=== PATIENT | male | born 1980 | race Caucasian/White ===

== ENCOUNTER 2017-09-15 06:07 | Emergency (ER) | payer OTHER ==
[2017-09-15 06:09] VITALS: BMI 31.3
[2017-09-15 06:21] VITALS: BP 134/76; PULSE 85; RESP 16; TEMP 98.8; O2SAT 98
[2017-09-15] MEDS ORDERED: Alum-Mag Hydrox-Simethicone Susp (30 mL) PO STA (06:22)
--- NOTE | 2017-09-15 06:30 | ED PDOC ---
HPI: General Adult Time Seen by Provider: 09/15/17 06:10 Chief Complaint (Nursing): Flu-like Symptoms Chief Complaint (Provider): Flu-like Symptoms History Per: Patient History/Exam Limitations: no limitations Onset/Duration Of Symptoms: Days (x 3) Current Symptoms Are (Timing): Still Present Additional Complaint(s): Denis is a 37 year old, male who presents to the emergency department with flu-like symptoms for 3 days. Patient reports sore throat, fever and malaise. Patient reports taking Tylenol for symptoms with no relief. Symptoms became worse today prompting to ED visit. Patient denies getting flu vaccine. PMD: Provider TBD Past Medical History Reviewed: Historical Data, Nursing Documentation, Vital Signs Vital Signs: Last Vital Signs Temp 98.8 F 09/15/17 06:19 Pulse 85 09/15/17 06:19 Resp 16 09/15/17 06:19 BP 134/76 09/15/17 06:19 Pulse Ox 98 09/15/17 06:35 - Medical History PMH: Benign Prostatic Hyperplasia (Follow with urologist), Kidney Stones (2013) , Pneumonia (Hospitalized 10yrs ago w/ "induced coma" for 1week.) Denies: Depression, HIV, Chronic Kidney Disease - Surgical History Surgical History: No Surg Hx - Family History Family History: States: Unknown Family Hx - Social History Current smoker - smoking cessation education provided: No Alcohol: None Drugs: Denies - Home Medications Home Medications: Ambulatory Orders Medication Instructions Recorded Meclizine HCl 25 mg PO TID #30 ctb 08/14/14 diaZEpam [Valium] 5 mg PO HS #10 tab 08/14/14 Famotidine [Pepcid] 20 mg PO BID #30 tab 09/20/15 Omeprazole [Prilosec] 20 mg PO DAILY #30 ecc 09/20/15 Oxycodone HCl/Acetaminophen 1 tab PO Q6 PRN #10 tab 09/20/15 [Percocet 325 mg-5 mg] Amoxicillin [Amoxil 500 mg Cap] 500 mg PO BID #20 cap 09/24/16 - Allergies Allergies/Adverse Reactions: Allergies Allergy/AdvReac Type Severity Reaction Status Date / Time No Known Allergies Allergy Verified 09/15/17 06:19 Review of Systems ROS Statement: Except As Marked, All Systems Reviewed And Found Negative Constitutional: Positive for: Fever, Malaise ENT: Positive for: Throat Pain Physical Exam - Reviewed Nursing Documentation Reviewed: Yes Vital Signs Reviewed: Yes - Physical Exam Appears: Positive for: Non-toxic Head Exam: Positive for: ATRAUMATIC, NORMAL INSPECTION, NORMOCEPHALIC Skin: Positive for: Normal Color Eye Exam: Positive for: Normal appearance ENT: Positive for: Normal ENT Inspection Neck: Positive for: Normal Cardiovascular/Chest: Positive for: Regular Rate, Rhythm Respiratory: Positive for: Normal Breath Sounds. Negative for: Respiratory Distress Gastrointestinal/Abdominal: Positive for: Normal Exam Back: Positive for: Normal Inspection Extremity: Positive for: Normal ROM. Negative for: Deformity Neurologic/Psych: Positive for: Alert, Oriented - ECG O2 Sat by Pulse Oximetry: 98 (RA) Pulse Ox Interpretation: Normal Medical Decision Making Medical Decision Making: Time: 06:22 Plan: - Maalo Plus 30 ml - Pepcid 20 mg PO - predniSONE Tab Scribe Attestation: Documented by Jesús Schuster, acting as a scribe for Vini Mhaan MD Provider Scribe Attestation: All medical record entries made by the Scribe were at my direction and personally dictated by me. I have reviewed the chart and agree that the record accurately reflects my personal performance of the history, physical exam, medical decision making, and the department course for this patient. I have also personally directed, reviewed, and agree with the discharge instructions and disposition. Disposition - Clinical Impression Clinical Impression: Influenza-like symptoms - Patient ED Disposition Is Patient to be Admitted: No - Disposition Referrals: Azar Hicks MD [Primary Care Provider] - Disposition Time: 06:27 Condition: STABLE Instructions: Influenza (ED) Forms: [employer] (Macedonian), [facility] ED School/Work Excuse
== END 2017-09-15 06:55 | disposition home or self-care (01) ==
LOC: H.ER 06:07
DX: J11.1 Influenza due to unidentified influenza virus with other respiratory manifestations (principal)

== ENCOUNTER 2018-07-06 18:00 | Emergency (ER) | payer OTHER ==
[2018-07-06 18:00] VITALS: BMI 31.3
[2018-07-06 18:17] VITALS: BP 125/73; PULSE 61; RESP 16; TEMP 98.3; O2SAT 100
--- NOTE | 2018-07-06 20:02 | ED PDOC ---
HPI: Chest Pain Time Seen by Provider: 07/06/18 19:45 Chief Complaint (Nursing): Chest Pain Chief Complaint (Provider): chest pain History Per: Patient History/Exam Limitations: no limitations Onset/Duration Of Symptoms: Days (4), Waxing/Waning Current Symptoms Are (Timing): Still Present Quality: Burning Additional Complaint(s): 37 y/o male presents for evaluation of intermittent left-sided chest pain x 4 days. Patient describes pain as "heat" and "burning" sensation. Notes will sometimes radiate to left arm. Denies fever, headache, dizziness, cough, nausea/vomiting, shortness of breath, palpitations, abdominal pain, leg pain/swelling, recent travel, sick contacts. Past Medical History Reviewed: Historical Data, Nursing Documentation, Vital Signs Vital Signs: Last Vital Signs Temp 98.3 F 07/06/18 18:14 Pulse 61 07/06/18 18:14 Resp 16 07/06/18 18:14 BP 125/73 07/06/18 18:14 Pulse Ox 100 07/06/18 18:14 - Medical History PMH: Benign Prostatic Hyperplasia (Follow with urologist), Gastritis, Kidney Stones (2013), Pneumonia (Hospitalized 10yrs ago w/ "induced coma" for 1week.) Denies: Depression, HIV, Chronic Kidney Disease - Surgical History Surgical History: Endoscopy - Family History Family History: States: Unknown Family Hx - Home Medications Home Medications: Ambulatory Orders Medication Instructions Recorded Meclizine HCl 25 mg PO TID #30 ctb 08/14/14 diaZEpam [Valium] 5 mg PO HS #10 tab 08/14/14 Famotidine [Pepcid] 20 mg PO BID #30 tab 09/20/15 Omeprazole [Prilosec] 20 mg PO DAILY #30 ecc 09/20/15 Oxycodone HCl/Acetaminophen 1 tab PO Q6 PRN #10 tab 09/20/15 [Percocet 325 mg-5 mg] Amoxicillin [Amoxil 500 mg Cap] 500 mg PO BID #20 cap 09/24/16 Amoxicillin 875 mg PO BID #14 05/20/18 Ibuprofen [Motrin Tab] 800 mg PO Q8 PRN #21 tab 05/20/18 - Allergies Allergies/Adverse Reactions: Allergies Allergy/AdvReac Type Severity Reaction Status Date / Time No Known Allergies Allergy Verified 07/06/18 18:14 Review of Systems ROS Statement: Except As Marked, All Systems Reviewed And Found Negative Cardiovascular: Positive for: Chest Pain Physical Exam - Reviewed Nursing Documentation Reviewed: Yes Vital Signs Reviewed: Yes - Physical Exam Appears: Positive for: Well, Non-toxic, No Acute Distress Head Exam: Positive for: ATRAUMATIC, NORMAL INSPECTION, NORMOCEPHALIC Skin: Positive for: Normal Color Eye Exam: Positive for: Normal appearance ENT: Positive for: Normal ENT Inspection Cardiovascular/Chest: Positive for: Regular Rate, Rhythm Respiratory: Positive for: Normal Breath Sounds Gastrointestinal/Abdominal: Positive for: Normal Exam Back: Positive for: Normal Inspection Extremity: Positive for: Normal ROM Neurologic/Psych: Positive for: Alert, Oriented (x3) - Laboratory Results Result Diagrams: 07/06/18 21:15 07/06/18 21:15 - ECG ECG: Positive for: Viewed By Me (reviewed by ED attending) ECG Rhythm: Positive for: Sinus Rhythm O2 Sat by Pulse Oximetry: 100 - Radiology X-Ray: Viewed By Me X-Ray Interpretation: No Acute Disease - Progress ED Course And Treament: -cbc -cmp -trop -cxr -ekg On re-eval, patient resting comfortably; states he is feeling better Patient educated on findings, discharged with instructions to follow up PMD within 2-3 days Return precautions given Disposition - Clinical Impression Clinical Impression: Atypical chest pain - Patient ED Disposition Is Patient to be Admitted: No Counseled Patient/Family Regarding: Studies Performed, Diagnosis, Need For Followup - Disposition Disposition: Routine/Home Disposition Time: 22:25 Condition: IMPROVED Instructions: Chest Pain Forms: [employer] ([employer])
[2018-07-06 21:46] LABS: BASO % 0.7 % (0.0-2.0); EOS # 0.1 K/uL (0.0-0.7); EOS % 2.1 % (0.0-4.0); HEMOGLOBIN 14.3 g/dL (12.0-18.0); LYMPH # 2.4 K/uL (1.0-4.3); MEAN CELL VOLUME 89.5 fl (80.0-94.0); MEAN CORPUSCULAR HEMOGLOBIN 30.5 pg (27.0-31.0); MEAN CORPUSCULAR HGB CONC 34.1 g/dL (33.0-37.0); MEAN PLATELET VOLUME 8.7 fl (7.2-11.7); MONO # 0.5 K/uL (0.0-0.8); MONO % 8.5 % (0.0-10.0); NEUT # 3.1 K/uL (1.8-7.0); NEUT % 49.7 % (50.0-75.0); RBC 4.7 Mil/uL (4.40-5.90); RED CELL DISTRIBUTION WIDTH 13.4 % (11.5-14.5); WHITE BLOOD COUNT 6.3 K/uL (4.8-10.8)
[2018-07-06 21:52] LABS: ALB/GLOB RATIO 1.3 (1.0-2.1); ALBUMIN 4.1 g/dL (3.5-5.0); BLOOD UREA NITROGEN 17 mg/dl (9-20); CALCIUM 9.1 mg/dL (8.4-10.2); GFR NON-AFRICAN AMERICAN > 60
[2018-07-06 22:05] LABS: ALT/SGPT 22 U/L (21-72); AST/SGOT 33 U/L (17-59)
--- NOTE | 2018-07-07 16:15 | RAD ---
Date of service: 07/06/2018 HISTORY: chest pain COMPARISON: 07/08/2012 TECHNIQUE: Chest PA and lateral FINDINGS: LUNGS: No active pulmonary disease. PLEURA: No significant pleural effusion identified. No pneumothorax apparent. CARDIOVASCULAR: No aortic atherosclerotic calcification present. Normal cardiac size. No pulmonary vascular congestion. OSSEOUS STRUCTURES: No significant abnormalities. VISUALIZED UPPER ABDOMEN: Normal. OTHER FINDINGS: None. IMPRESSION: No active disease. No significant interval change compared to the prior examination(s).
== END 2018-07-06 22:55 | disposition home or self-care (01) ==
LOC: H.ER 18:00
DX: R07.89 Other chest pain (principal); N40.0 Benign prostatic hyperplasia without lower urinary tract symptoms; Z87.442 Personal history of urinary calculi

== ENCOUNTER 2018-07-26 17:51 | Emergency (ER) | payer OTHER ==
[2018-07-26 17:51] VITALS: BMI 31.3
[2018-07-26 18:08] VITALS: BP 121/75; PULSE 62; RESP 18; TEMP 98.4; O2SAT 99
--- NOTE | 2018-07-26 19:22 | ED PDOC ---
HPI: CCC, URI, Sore Throat Time Seen by Provider: 07/26/18 18:39 Chief Complaint (Nursing): ENT Problem Chief Complaint (Provider): ENT Problem History Per: Patient History/Exam Limitations: no limitations Onset/Duration Of Symptoms: Days (x3) Location Of Pain: Throat Additional Complaint(s): 37 y/o male with history of pneumonia who presents to the ED complaining of sore throat for the past x3 days. Patient states that he has been able to tolerate PO but has pain with swallowing. Denies fever or chills. Patient was taking Motrin earlier today with minimal relief. Past Medical History Reviewed: Historical Data, Nursing Documentation, Vital Signs Vital Signs: Last Vital Signs Temp 98.4 F 07/26/18 18:06 Pulse 62 07/26/18 18:06 Resp 18 07/26/18 18:06 BP 121/75 07/26/18 18:06 Pulse Ox 99 07/26/18 18:06 - Medical History PMH: Benign Prostatic Hyperplasia (Follow with urologist), Gastritis, Kidney Stones (2013), Pneumonia (Hospitalized 10yrs ago w/ "induced coma" for 1week.) Denies: Depression, HIV, Chronic Kidney Disease - Surgical History Surgical History: Endoscopy - Family History Family History: States: Unknown Family Hx - Home Medications Home Medications: Ambulatory Orders Medication Instructions Recorded Meclizine HCl 25 mg PO TID #30 ctb 08/14/14 diaZEpam [Valium] 5 mg PO HS #10 tab 08/14/14 Famotidine [Pepcid] 20 mg PO BID #30 tab 09/20/15 Omeprazole [Prilosec] 20 mg PO DAILY #30 ecc 09/20/15 Oxycodone HCl/Acetaminophen 1 tab PO Q6 PRN #10 tab 09/20/15 [Percocet 325 mg-5 mg] Amoxicillin [Amoxil 500 mg Cap] 500 mg PO BID #20 cap 09/24/16 Amoxicillin 875 mg PO BID #14 05/20/18 Ibuprofen [Motrin Tab] 800 mg PO Q8 PRN #21 tab 05/20/18 Amoxicillin 875 mg PO BID #20 tablet 07/26/18 Ibuprofen [Motrin Tab] 600 mg PO TID PRN #15 tab 07/26/18 - Allergies Allergies/Adverse Reactions: Allergies Allergy/AdvReac Type Severity Reaction Status Date / Time No Known Allergies Allergy Verified 07/26/18 18:06 Review of Systems ROS Statement: Except As Marked, All Systems Reviewed And Found Negative Constitutional: Negative for: Fever, Chills ENT: Positive for: Throat Pain. Negative for: Ear Pain, Nose Congestion Physical Exam - Reviewed Nursing Documentation Reviewed: Yes Vital Signs Reviewed: Yes - Physical Exam Appears: Positive for: Non-toxic, No Acute Distress Head Exam: Positive for: ATRAUMATIC, NORMOCEPHALIC Skin: Positive for: Normal Color, Warm, DRY Eye Exam: Positive for: EOMI, Normal appearance, PERRL ENT: Positive for: Pharyngeal Erythema, Other (mild uvular swelling with no uvular deviation; no trismus; airway is widely patent). Negative for: Tonsillar Exudate Neck: Positive for: Normal, Painless ROM Cardiovascular/Chest: Positive for: Regular Rate, Rhythm. Negative for: Murmur Respiratory: Positive for: Normal Breath Sounds. Negative for: Respiratory Distress Extremity: Positive for: Normal ROM. Negative for: Pedal Edema, Deformity Neurologic/Psych: Positive for: Alert, Oriented. Negative for: Motor/Sensory Deficits - ECG O2 Sat by Pulse Oximetry: 99 (RA) Pulse Ox Interpretation: Normal Medical Decision Making Medical Decision Making: Time: 19:22 Initial Impression: sore throat Initial Plan: * Amoxicillin * Decadron Pt. well appearing, tolerating po, no distress. Scribe Attestation: Documented by Atif Nguyen, acting as a scribe for Malorie Trotter PA-C Provider Scribe Attestation: All medical record entries made by the Scribe were at my direction and personally dictated by me. I have reviewed the chart and agree that the record accurately reflects my personal performance of the history, physical exam, medical decision making, and the department course for this patient. I have also personally directed, reviewed, and agree with the discharge instructions and disposition. Disposition - Clinical Impression Clinical Impression: Throat pain - Patient ED Disposition Is Patient to be Admitted: No Counseled Patient/Family Regarding: Diagnosis, Need For Followup, Rx Given - Disposition Referrals: [facility] [Outside] Disposition: Routine/Home Disposition Time: 20:08 Condition: STABLE Prescriptions: Amoxicillin 875 mg PO BID #20 tablet Ibuprofen [Motrin Tab] 600 mg PO TID PRN #15 tab PRN Reason: Pain, Moderate (4-7) Instructions: Sore Throat, Adult (DC) Forms: [employer] (Setswana)
== END 2018-07-26 20:15 | disposition home or self-care (01) ==
LOC: H.ER 17:51
DX: J02.9 Acute pharyngitis, unspecified (principal)
CPT/HCPCS: 96372; 99282; J1100